=== PATIENT | male | born 2000 | race Caucasian/White ===

== ENCOUNTER 2023-07-23 15:24 | Observation (INO) | payer BC, SELFPAY ==
[2023-07-23] VITALS (12 sets, daily range): BP systolic 119–153; BP diastolic 62–86; PULSE 68–93; RESP 12–20; TEMP 36.5; O2SAT 96–100; BMI 25.2
--- NOTE | ~2023-07-23 | XR_ITS ---
EXAMINATION: XR chest 2V Exam Date/Time: 07/23/2023 16:10 PEDIATRIC ONCOLOGY NURSE HISTORY: chest pain while running Comparison: None. RESULT: Lines, tubes, and devices: None. Lungs and pleura: Clear. Cardiomediastinal silhouette: Normal. Other: No acute osseous or upper abdominal finding. IMPRESSION: No acute cardiopulmonary process. Reviewed, dictated and finalized at location K. ATRIC ONCOLOGY NURSE
--- NOTE | 2023-07-23 15:27 | ECG_ITS ---
Measurements Intervals [place] Rate: 93 P: 80 HI: 185 QRS: 83 QRSD: 89 T: -17 QT: 312 QTc: 390 Interpretive Statements SINUS RHYTHM NONSPECIFIC T-WAVE ABNORMALITY BORDERLINE ECG NO PREVIOUS ECG AVAILABLE FOR COMPARISON Electronically Signed On 07-24-2023 7:03:20 [employer]Y WORKERS SUPERVISOR by Cosme Melton M.D.
[2023-07-23 15:52] LABS: Basophils Percent Auto 0.7 % (0.2-1.2); Eosinophils Percent Auto 0.7 % (0-4.4); Hematocrit 40.9 % (42.0-52.0); Hemoglobin 13.9 g/dL (14.0-18.0); Immature Granulocyte Absolute 0.01 K/mm3 (0.00-0.031); Immature Granulocyte Percent A 0.2 % (0-0.5); Lymphocytes Absolute Auto 1.86 K/mm3 (0.9-3.2); Lymphocytes Percent Auto 32.9 % (18.3-44.2); Mean Corpuscular Hemoglobin 30.2 pg (26-34); Mean Corpuscular Volume 88.9 fl (80-100); Mean Platelet Volume 9.1 fl (7.4-10.4); Monocytes Absolute Auto 0.5 K/mm3 (0.1-0.6); Monocytes Percent Auto 9.2 % (2.6-8.5); Neutrophils Absolute Auto 3.2 K/mm3 (1.3-6.7); Neutrophils Percent Auto 56.3 % (45.5-73.1); Platelet Count Result 292 k/mm3 (150-375); Red Cell Distribution Width 12.3 % (11.5-14.5); White Blood Count 5.7 K/mm3 (4.5-10.0)
[2023-07-23 16:02] LABS: Alanine Aminotransferase 18 U/L (6-50); Albumin Level 4.8 g/dL (3.5-5.1); Alkaline Phosphatase 62 U/L (38-126); Anion Gap 5 mmol/L (8-16); Aspartate Amino Transferase 42 U/L (17-59); Bilirubin,Total 0.8 mg/dL (0.2-1.3); Blood Urea Nitrogen 14 mg/dL (9-20); Calcium 9.7 mg/dL (8.4-10.2); Carbon Dioxide 32 mmol/L (22-30); Chloride 103 mmol/L (98-107); Estimated CRCL calculation 80 ml/min; Estimated Glomerular Filt Rate > 60; Glucose 98 mg/dL (65-110); Lipase 64 U/L (23-300); Potassium 3.9 mmol/L (3.4-5.0); Sodium 140 mmol/L (137-145)
[2023-07-23 16:05] LABS: Prothrombin Time 13.1 Seconds (11.1-14.7)
[2023-07-23 16:13] LABS: Troponin I < 0.012 ng/mL (0.000-0.034)
--- NOTE | 2023-07-23 18:01 | ED.CHESTPAIN ---
HPI - Chest Pain General Chief Complaint: Chest Pain <Ignacio Pastor MD - Last Filed: 07/23/23 19:17> Stated Complaint: Chest pain <Ignacio Pastor MD - Last Filed: 07/23/23 19:17> Time Seen by Provider: 07/23/23 17:28 <Ignacio Pastor MD - Last Filed: 07/23/23 19:17> History of Present Illness HPI narrative: This is a 22-year-old male with a history of hypertension, presents to the emergency department complaining of rapid heart rate and chest pressure. The patient states he was finishing a 4 mi run, when he noted his heart rate increased to the 200s (by his apple smart watch) and developed chest pressure rated 5/10. He states this lasted approximately 10 minutes with improvement of pain and heart rate on sitting, though it is sill present. He has no other complaints at this time. <Ignacio Pastor MD - Last Filed: 07/23/23 19:17> Related Data Allergies/Adverse Reactions: Allergies Allergy/AdvReac Type Severity Reaction Status Date / Time No Known Allergies Allergy Verified 07/23/23 18:04 <Ignacio Pastor MD - Last Filed: 07/23/23 19:17> Review of Systems Review of Systems: CONSTITUTIONAL: Denies fever, chills, or sweats. CARDIOVASCULAR: Palpitations, chest pain-now improved Denies edema. RESPIRATORY: Denies cough or dyspnea. GASTROINTESTINAL: Denies abdominal pain, nausea, vomiting, or diarrhea. GENITOURINARY: Denies dysuria or hematuria. SKIN: Denies rash or itching. MUSCULOSKELETAL: Denies back pain, joint pain, or myalgia. NEUROLOGIC: Denies headache, numbness, dizziness, or weakness. PSYCHIATRIC: Denies anxiety or depression. <Ignacio Pastor MD - Last Filed: 07/23/23 19:17> PMFSH Past Medical History Medical History: Medical History Hypertension <Ignacio Pastor MD - Last Filed: 07/23/23 19:17> Surgical History Surgical History: Surgical History No significant past surgical history <Ignacio Pastor MD - Last Filed: 07/23/23 19:17> Social History Social History: Social History Smoking status: Never smoker Alcohol intake: current Drinks per week: 1 Substance use: never <Ignacio Pastor MD - Last Filed: 07/23/23 19:17> Exam Narrative: GENERAL: Well-developed, well-nourished, and in no acute distress. HEAD: Normocephalic, atraumatic. EYES: PERRLA and EOMI. CHEST: Clear to auscultation. No respiratory distress. No wheezes rales or rhonchi HEART: Regular rate and rhythm. No murmur heard. Normal peripheral pulses. ABDOMEN: Soft, nontender, nondistended, normal active bowel sounds. EXTREMITIES: Normal range of motion. No edema. SKIN: Warm, dry, no rash. NEURO: Alert and oriented x3. No focal deficit. Moving all 4 limbs spontaneously PSYCH: Normal mood and affect. <Ignacio Pastor MD - Last Filed: 07/23/23 19:17> Course Course Emergency Course: 17:55 - Initial troponin negative. Chemistries remarkable for elevated creatinine of 1.4 with an unknown baseline. CBC unremarkable. Chest x-ray unremarkable. Concerning the persistence of the patient's chest pain, though improved will repeat troponin. Will give IV fluids. I anticipate discharge. 19:16 - Repeat troponin elevated to 0.052. Patient to oncoming ED physician, Dr. Mckeon pending admission for observation. <Ignacio Pastor MD - Last Filed: 07/23/23 19:17> 17:55 - Initial troponin negative. Chemistries remarkable for elevated creatinine of 1.4 with an unknown baseline. CBC unremarkable. Chest x-ray unremarkable. Concerning the persistence of the patient's chest pain, though improved will repeat troponin. Will give IV fluids. I anticipate discharge. 19:16 - Repeat troponin elevated to 0.052. Patient to oncoming ED physicianDr. Mckeon pending admission for
[2023-07-23] MEDS: Please add drug allergy info to patient profile. 1 EACH XX (18:05)
[2023-07-23] MEDS: SODIUM CHLORIDE 0.9% IV 1,000 ML 999 ML IV CONT (18:15)
[2023-07-23] MEDS: ASPIRIN 81 MG CHEWABLE TABLET 324 MG PO (18:15)
[2023-07-23 19:02] LABS: Troponin I 0.052 ng/mL (0.000-0.034)
[2023-07-23 19:08] LABS: Thyroid Stimulating Hormone 0.947 uIU/mL (0.465-4.680)
[2023-07-23 19:36] LABS: Creatine Kinase 380 U/L (55-170)
--- NOTE | 2023-07-23 20:18 | PM.IMHP ---
H&P: HPI History of Present Illness Date/Time: 07/23/23 20:18 Chief Complaint: chest pain Narrative: this is a 22-year-old male with no significant past medical history presents today to the emergency room after having episode of palpitations, lightheadedness AND SHORTNESS OF BREATH while out on a run his Apple watch indicated heart rate in the 200s. Patient runs 12-20 miles a week denies use of any energy drinks or the use of recreational drugs or alcohol, has been his usual state of health up until this point. No nausea, no vomiting, no abdominal pain, no fevers, rigors, no chills. Preliminary workup was significant for CPK of 380, troponin x2 0.052/0.057 respectively. In emergency room patient remained in sinus rhythm. Has been placed in observation for further evaluation management and treatment. Rate 93 OR 185 QRSd 89 QT 312 QTc 390 --[place]-- P 80 QRS 83 T -17 SINUS RHYTHM NONSPECIFIC T-WAVE ABNORMALITY NO PREVIOUS ECG AVAILABLE FOR COMPARISON Review of Systems Review of Systems: CHEST PAIN, PALPITATIONS, LIGHTHEADEDNESS, SHORTNESS OF BREATH Constitutional: Constitutional: Denies chills, Denies fever(s), Denies night sweats and Denies weakness Eyes: Eyes: Denies change in vision ENT: Denies dysphagia and Denies odynophagia Cardiovascular: Cardiovascular: Reports chest pain, Denies leg edema, Reports lightheadedness, Reports palpitations and Reports dyspnea Respiratory: Respiratory: Denies chest congestion and Denies cough Gastrointestinal: Gastrointestinal: Denies abdominal pain, Denies nausea and Denies vomiting Genitourinary: Genitourinary: Denies dysuria Musculoskeletal: Musculoskeletal: Denies back pain, Denies myalgias, Denies joint swelling and Denies muscle weakness Integumentary/Breasts: Skin/Breast: Denies rash Neurologic: Denies focal weakness and Denies Sensory deficit (Neuro) Psychiatric: Psychiatric: Reports no additional psychiatric complaints and Reports as per HPI Endocrine: Endocrine: Denies cold intolerance, Denies flushing, Denies heat intolerance, Denies polyphagia, Denies polydipsia and Denies palpitations Hematologic/Lymphatic: Hematologic/Lymphatic: Reports no additional hematologic/lymphatic complaints and Reports as per HPI Allergic/Immunologic: Allergic/Immunologic: Reports no additional allergic/immunologic complaints and Reports as per HPI PMFSH Past Medical History Medical History Hypertension Surgical History Surgical History No significant past surgical history Family History Family History (Updated 07/23/23 @ 23:21 by Alex Lawson RN) Mother Hypertension Social History Social History Smoking status: Never smoker Alcohol intake: current Drinks per week: 1 Substance use: never Substance use type: does not use Do You Feel Safe in your Home?: Yes Lack of Transportation: No Lack of Food: Never True Current Housing: I Have Housing Concerned About Future Housing: No Difficulty Paying Gas/Electric Bills: No Difficulty Paying for Meds: No Currently Unemployed: No Education: High School Diploma/GED Difficulty w/ Childcare or Family Care: No Spiritual care concerns: No Meds Home Medications and Allergies Home Medications Medication Instructions Recorded Confirmed Type No Home Medications 07/24/23 07/24/23 History Allergies Allergy/AdvReac Type Severity Reaction Status Date / Time No Known Allergies Allergy Verified 07/23/23 18:04 Vital Signs Vital Signs - 24 hr 07/23/23 15:31 07/23/23 17:46 07/23/23 17:46 Pulse Rate 93 80 Respiratory Rate 14 Blood Pressure 146/72 H Pulse Oximetry 100 100 Oxygen Delivery Room Air Room Air H&P: Results Labs Labs: Short CBC 07/23/23 Range/Units 15:41 WBC 5.7 (4.5-
--- NOTE | 2023-07-23 21:45 | ECG_ITS ---
Measurements Intervals [place] Rate: 61 P: [place]: 0 QRS: 71 QRSD: 98 T: -17 QT: 360 QTc: 364 Interpretive Statements SINUS RHYTHM BASELINE ARTIFACT NONSPECIFIC ST & T-WAVE ABNORMALITY WITH DIFFUSE J-POINT ELEVATION BORDERLINE ECG COMPARED TO ECG 07/23/2023 15:37:15 NO SIGNIFICANT CHANGES Electronically Signed On 07-24-2023 18:21:45 SCHOOL EXAMINER by Shawn Zambrano M.D.
[2023-07-23 22:33] LABS: Troponin I 0.057 ng/mL (0.000-0.034)
--- NOTE | 2023-07-23 23:38 | ECG_ITS ---
Measurements Intervals [place] Rate: 65 P: 3 TX: 161 QRS: 71 QRSD: 102 T: -7 QT: 409 QTc: 427 Interpretive Statements SINUS RHYTHM ST ELEVATION CONSISTENT WITH PERICARDITIS, OR EARLY REPOLARIZATION [ST ELEVATION W/O NORMALLY INFLECTED T WAVE] ST DEVIATION AND MODERATE T-WAVE ABNORMALITY, NONSPECIFIC BORDERLINE ECG COMPARED TO ECG 07/23/2023 21:52:32 NO SIGNIFICANT CHANGE Electronically Signed On 07-24-2023 18:22:44 [employer] by Shawn Zambrano M.D.
--- NOTE | 2023-07-23 23:56 | ADMGEN ---
This patient, Sai Meza, was admitted to IMU Room 201-01. Patient/family oriented to hospital policies and general routines including ID bracelet, bed and alarms, visiting hours, pain management, procedures, bathroom and other care routines, personal items, smoking policy, room service/diet, and visiting hours. Information on how to activate the Rapid Response Team has been discussed. Patient/Family are encouraged to report perceived risks to care and to ask questions if they do not understand what they are told or what they should do.
[2023-07-24] VITALS (17 sets, daily range): BP systolic 123–143; BP diastolic 51–66; PULSE 47–74; RESP 16–20; TEMP 36.1–36.8; O2SAT 98–100
--- NOTE | 2023-07-24 | ECHO_ITS ---
Patient Info Name: Sai Meza Age: 22 years : 2000 Gender: Male Ht: 75 in Wt: 202 lbs BSA: 2.21 m2 HR: 47 bpm BP: 124 / 53 mmHg Heart Rhythm: Bradycardia, Sinus Rhythm Technical Quality: Good Exam Date: 07/24/2023 7:28 AM Exam Location: Echo Lab Patient Status: Outpatient Admit Date: 07/23/2023 Staff Ordering Physician: Steph Simpson MD Gristmiller: Irina Ascencio RDCS Attending Provider: Steph Simpson MD Referring Physician: Calvin BRICENO; Exam Type: CA echo doppler w bubble study Study Info Indications - SVT Complete two-dimensional, color flow and Doppler transthoracic echocardiogram is performed. Contrast/Agitated Saline Contrast/Ag. Saline: Agitated Saline Amount: 20.00 ml Administered By: Jennifer Alonso RDCS Existing IV Access: Yes IV Access Condition: patent with no signs of infiltration Summary 1. Complete two-dimensional, color flow and Doppler transthoracic echocardiogram is performed. 2. Dilated inferior vena cava with <50% collapse upon inspiration consistent with elevated right atrial pressure, 10 mmHg. 3. The pericardium appears slightly increased echogenicity of the pericardium. 4. Left ventricular chamber dimension is normal. 5. Left ventricular systolic function is normal, estimated at 65-70%. 6. There is no increased left ventricular wall thickness. 7. The left ventricular diastolic function is normal. 8. Right ventricular chamber dimension is normal. 9. Right ventricular systolic function is normal. 10. Right atrial chamber dimension is moderate to severely enlarged. 11. There is trace mitral valve regurgitation. 12. There is trace tricuspid valve regurgitation. 13. No pulmonary hypertension, estimated pulmonary arterial systolic pressure is 29 mmHg. 14. No evidence for [id number] shunt with injection of agitated saline with or without Valsalva. Left Ventricle Left ventricular chamber dimension is normal. Left ventricular systolic function is normal, estimated at 65-70%. There is no increased left ventricular wall thickness. The left ventricular diastolic function is normal. Right Ventricle Right ventricular chamber dimension is normal. Right ventricular systolic function is normal. Left Atria Left atrial chamber dimension is normal. Right Atria Right atrial chamber dimension is moderate to severely enlarged. Atrial Septum No evidence for [id number] shunt with injection of agitated saline with or without Valsalva. Aortic Valve The aortic valve is trileaflet. There is no aortic valve stenosis. There is no aortic valve regurgitation. Pulmonic Valve The pulmonic valve is not well visualized. There is trace pulmonic regurgitation. Mitral Valve The mitral valve has normal leaflets. There is trace mitral valve regurgitation. Tricuspid Valve The tricuspid valve leaflets are normal. There is trace tricuspid valve regurgitation. No pulmonary hypertension, estimated pulmonary arterial systolic pressure is 29 mmHg. Pericardium/Pleural The pericardium appears slightly increased echogenicity of the pericardium. There is no pericardial effusion. Inferior Vena Cava Dilated inferior vena cava with <50% collapse upon inspiration consistent with elevated right atrial pressure, 10 mmHg. Aorta The aortic root size at the sinus of Valsalva is normal. Left Ventricular Outflow Tract Name Value Normal
[2023-07-24] MEDS: SODIUM CHLORIDE 0.9% IV 1,000 ML 100 ML IV CONT (00:50)
[2023-07-24 05:11] LABS: Anion Gap 6 mmol/L (8-16); Blood Urea Nitrogen 14 mg/dL (9-20); Calcium 8.8 mg/dL (8.4-10.2); Carbon Dioxide 28 mmol/L (22-30); Chloride 107 mmol/L (98-107); Cholesterol 87 mg/dL (0-200); Creatine Kinase 288 U/L (55-170); Estimated CRCL calculation 94 ml/min; Estimated Glomerular Filt Rate > 60; Glucose 87 mg/dL (65-110); HDL Direct 28 mg/dL; Potassium 3.8 mmol/L (3.4-5.0); Sodium 141 mmol/L (137-145); Triglycerides 74 mg/dL (<150)
[2023-07-24 05:21] LABS: LDL Cholesterol Direct 52 mg/dL
[2023-07-24 09:40] LABS: Troponin I < 0.012 ng/mL (0.000-0.034)
--- NOTE | 2023-07-24 10:39 | ECG_ITS ---
Measurements Intervals [place] Rate: 58 P: 0 FL: 167 QRS: 49 QRSD: 97 T: -15 QT: 384 QTc: 380 Interpretive Statements SINUS BRADYCARDIA DIFFUSE J-POINT ELEVATION CONSIDER EARLY REPOLARIZATION, PERICARDITIS BORDERLINE ECG COMPARED TO ECG 07/23/2023 23:46:23 SINUS BRADYCARDIA NOW PRESENT Electronically Signed On 07-24-2023 18:29:11 [employer]PERINTENDENT [employer]OB by Shawn Zambrano M.D.
--- NOTE | 2023-07-24 11:11 | PM.CNCAR ---
Assessment and Plan Assessment and plan (1) Chest pain: Qualifiers: Chest pain type: unspecified Qualified Code(s): R07.9 - Chest pain, unspecified Code(s): R07.9 - Chest pain, unspecified Status: Acute Assessment and Plan: Chest pain occurred while running in conjunction with rapid elevation heart rate suddenly up to 210 beats per minute sustained without change for least 15-20 minutes subsequently reduction in heart rate and resolution of the symptoms over the next 1-2 hours. Initial troponin negative subsequently elevated 0.052, 0.057 and following evaluation less than 0.012. He has not had recurrent SVT or tachyarrhythmia on telemetry thus far. Most likely explanation for symptoms related to demand ischemia in setting of SVT which occurred during exercise although cannot entirely exclude myopericarditis. However, exam is not suggestive of pericarditis given the absence fraction rub although ECG possibly supportive. He does not report any preceding contributing viral illness or illicit substance abuse and given the fact he is completely asymptomatic at this time would argue against active acute severe pericarditis that resolved without direct treatment. As such, symptoms pretty most likely consistent with demand ischemia related to SVT particular given history of intermittent fluttering and palpitations with similar but no where near severe symptoms given the brief nature in the past. As such, we discussed at great length diagnostic workup in this regard. We discussed outpatient 30 day hospital monitor further documentation evaluation. I do not feel a stress test will significantly alter our management particular given patient's high level of activity tolerance without any anginal symptoms proceeding. Furthermore, if he does have pericarditis breathing through a stress test would be ill-advised. Will reviewed 2D echocardiogram to assess LV wall motion, LV function, valve pathology pulmonary pressures as well as pericardium with further recommendation to follow. If there is additional concern in this regard or cannot entirely exclude pericarditis have been favor treating him with NSAID therapy with tapering doses of ibuprofen as well as possibly some colchicine for least 2 weeks. I will check an ESR and CRP for further evaluation. I spent 84 minutes in the care of this patient at bedside including discussions, examination, chart review, medical decision-making, and documentation. (2) Elevated troponin: Code(s): R79.89 - Other specified abnormal findings of blood chemistry Status: Acute Assessment and Plan: Mild troponin elevation currently resolved most likely demand ischemia not secondary to acute coronary syndrome and/or plaque rupture. ECG while abnormal with diffuse J-point elevation not consistent with a clear acute pattern of injury particularly given this young otherwise very healthy gentleman without risk factors for CAD. Patient is asymptomatic at this time. (3) SVT (supraventricular tachycardia): Code(s): I47.10 - Supraventricular tachycardia, unspecified Status: Acute Assessment and Plan: By history patient describes sustained rapid tachyarrhythmia heart rate greater than 200 beats per minute without fluctuation arguing against a physiologic response given his present level of activity at time of onset and history of intermittent similar but fleeting rapid fluttering/palpitations he has experienced over many years without prior diagnosis. We discussed observation, medical management with AV lara blocking agents and if diagnosed referral to electrophysiology for ablation procedure for potential cure. Given the lack of specific diagnosis at this time. We will continue to monitor on telemetry for now hold off on medical therapy continue to observe. If SVT is not identified this hospitalization outpatient 30 day hospital monitor will be recommended for further evaluation. (
[2023-07-24 11:29] LABS: CRP < 0.5 mg/dL (<1.0)
[2023-07-24 12:08] LABS: Erythrocyte Sedimentation Rate 11 mm/hr (0-20)
--- NOTE | 2023-07-24 14:38 | PM.IMPN ---
Progress Note: A&P Assessment and Plan (1) Chest pain: Qualifiers: Chest pain type: unspecified Qualified Code(s): R07.9 - Chest pain, unspecified Code(s): R07.9 - Chest pain, unspecified Status: Acute Assessment and Plan: Patient with CP while running associated with severe tachycardia. EKG showing NSR with nonspecific T-wave changes. A third EKG showing ST elevation consider lateral ischemia vs pericarditis. Troponin elevated to 0.057 probably related to SVT Cardiology consulted. Echo ordered Suspect CP related to abnormal heart rhythm (such as SVT). Monitor on tele. Stop IV fluids (2) Abnormal heart rate: Code(s): R00.9 - Unspecified abnormalities of heart beat Status: Acute Assessment and Plan: Not captured to review but suspect SVT. He has been having episodes of brief, rapid heart rate in the past with exertion. Monitor on tele He may need outpatient monitoring (3) Abnormal ECG: Code(s): R94.31 - Abnormal electrocardiogram [ECG] [EKG] Status: Acute Assessment and Plan: As above (4) Elevated troponin: Code(s): R79.89 - Other specified abnormal findings of blood chemistry Status: Acute Assessment and Plan: As above (5) Hypertension: Code(s): I10 - Essential (primary) hypertension Status: Acute Assessment and Plan: Patient found to have borderline elevated BP. Mom with HTN at an early age so probably essential. TSH, lipid panel, CBC, electrolytes normal. Cr 1.4 on admisison but he has been taking creatine supplements. Check UA. Consider renal artery doppler. Plan DVT prophylaxis - out of bed, walk in halls Code status - full Subjective Date/time seen: 07/24/23 14:38 Interval history: 22yo healthy male with HTN on no medications here for chest pain and rapid heart rate. Patient feels well. No recurrence of symptoms. Described it as a band like pain arund his chest. not pleuritic. Heart rate up to 200 per his [employer] smart watch. Exam Narrative: AF 98.2 123/57 53 16 98% ra Gen - NARD Chest - CTA bilaterally, nml RR CV - RRR S1/S2. Tele showing mild bradycardia Abd - Soft, NT/ND, Positive BS Ext - No pedal edema Neuro - Alert and oriented. Nonfocal exam. Psych - Nml mood and affect Skin - Warm and dry Objective Data Vital Signs Vital Signs: Vital Signs - 24 hr 07/23/23 15:31 07/23/23 17:46 07/23/23 17:46 Temperature Pulse Rate 93 80 Respiratory Rate 14 Blood Pressure 146/72 H Pulse Oximetry 100 100 Oxygen Delivery Room Air Room Air 07/23/23 17:46 07/23/23 18:01 07/23/23 18:32 Temperature Pulse Rate 80 70 83 Respiratory Rate 19 16 18 Blood Pressure 149/73 H 131/72 130/64 Pulse Oximetry 100 100 100 Oxygen Delivery 07/23/23 19:01 07/23/23 19:31 07/23/23 20:01 Temperature Pulse Rate 71 70 69 Respiratory Rate 14 16 16 Blood Pressure 130/70 127/79 134/62 Pulse Oximetry 100 100 96 Oxygen Delivery 07/23/23 21:55 07/23/23 22:15 07/23/23 22:30 Temperature Pulse Rate 68 69 85 Respiratory Rate 17 16 12 Blood Pressure 128/73 119/76 Pulse Oximetry 100 100 Oxygen Delivery 07/23/23 22:45 07/23/23 23:50 07/24/23 00:00 Temperature 97.7 F Pulse Rate 89 72 73 Respiratory Rate 20 20 Blood Pressure 121/72 153/86 H Pulse Oximetry 100 100 Oxygen Delivery 07/24/23 02:00 07/24/23 04:00 07/24/23 05:01 Temperature 97.0 F L Pulse Rate 64 59 L 47 L Respiratory Rate 20 Blood Pressure 124/53 L Pulse Oximetry 98 Oxygen Delivery 07/24/23 06:00 07/24/23 08:00 07/24/23 11:53 Temperature 97.6 F 98.3 F Pulse Rate 52 L 48 L 57 L Respiratory Rate 16 20 Blood Pressure 136/66 143/64 H Pulse Oximetry 98 98 Oxygen Delivery 07/24/23 08:00 07/24/23 12:00 07/24/23 10:00 Temperature Pulse Rate 69 58 L 64 Respiratory Rate Blood Pressure Pulse Oximetry Oxygen Delivery
--- NOTE | 2023-07-24 20:13 | PC.NURSE ---
Given container for Urine Specimen
[2023-07-24 20:50] LABS: Appearance Urine Clear (Clear); Bilirubin Urine Negative (Negative); Blood Urine Negative (Negative); Color Urine Yellow (Yellow); Glucose Urine UA Negative (Negative); Ketones Urine Negative (Negative); Leukocyte Esterase Ur Negative LEU/UL (Negative); Nitrate Urine Negative (Negative); Protein Urine Negative (Negative); Specific Grav Ur 1.016 (1.001-1.035); Urobilinogen Urine 0.2 mg/dL (<2.0)
[2023-07-24 21:17] LABS: Add Urine Microscopic? NO
[2023-07-25] VITALS (11 sets, daily range): BP systolic 113–145; BP diastolic 57–77; PULSE 43–69; RESP 12–16; TEMP 36.1–36.4; O2SAT 99–100
--- NOTE | 2023-07-25 07:00 | ECG_ITS ---
Measurements Intervals [place] Rate: 42 P: 0 [place]: 179 QRS: 70 QRSD: 106 T: -1 QT: 432 QTc: 363 Interpretive Statements SINUS BRADYCARDIA WITH SINUS ARRHYTHMIA COMPARED TO ECG 07/24/2023 11:05:33 SINUS ARRHYTHMIA NOW PRESENT Electronically Signed On 07-25-2023 15:34:40 DOWEL MAKER by Sachin Evangelista M.D.
--- NOTE | 2023-07-25 08:10 | PC.NURSE ---
Report given to Dr. Santoro that the pt HR trend has been down in the 40s et the pt is alert et awake et sitting up in the bed. Reviewed the ECG with no new interventions at this time from this AM 0747. Questioned if the pt is able to eat or should we change the pt to NPO? Per Dr. Santoro no changes needed at this time to the current POC.
--- NOTE | 2023-07-25 10:13 | PM.PNCARD ---
Progress Note: A&P Assessment and Plan (1) Chest pain: Qualifiers: Chest pain type: unspecified Qualified Code(s): R07.9 - Chest pain, unspecified Code(s): R07.9 - Chest pain, unspecified Status: Acute Assessment and Plan: Chest pain occurred while running in conjunction with rapid elevation heart rate suddenly up to 210 beats per minute sustained without change for least 15-20 minutes with subsequent reduction in heart rate and resolution of the symptoms over the next 1-2 hours. He has not had recurrent SVT or tachyarrhythmia on telemetry thus far. Most likely explanation for symptoms related to demand ischemia in setting of SVT which occurred during exercise. Echo showed normal LV systilic function, mod-severe RA chamber enlargement, trace MR, trace TR, thickened pericardium with no pericardial effusion ESR, CRP negative Will order outpatient cardiac MRI to further evaluate the pericardium - thus far no definitive support for treating pericarditis/myopericarditis 30 day rib chopper has been ordered. OK for discharge today from a cardiac standpoint (2) Elevated troponin: Code(s): R79.89 - Other specified abnormal findings of blood chemistry Status: Acute Assessment and Plan: Mild troponin elevation currently resolved most likely demand ischemia. No risk factors for CAD. No plans for cardiac stress testing at this time. (3) SVT (supraventricular tachycardia): Code(s): I47.10 - Supraventricular tachycardia, unspecified Status: Acute Assessment and Plan: By history patient describes sustained rapid tachyarrhythmia heart rate greater than 200 beats per minute lasting 15-20 minutes with gradual reduction in HR down to normal after 1-2 hours. Given the lack of specific diagnosis at this time with no reucrrence on telemetry, will proceed with plan for 30 day outpatient monitor and will hold off on medical therapy while we observe. Possible referral to EP depending on findings of outpatient monitor (4) Abnormal ECG: Code(s): R94.31 - Abnormal electrocardiogram [ECG] [EKG] Status: Acute Assessment and Plan: ECG with diffuse J-point elevation and abnormal T-wave inversions in the inferior leads. His presentation and pattern not consistent with acute coronary syndrome and/or plaque rupture. Is highly unlikely his significant obstructive CAD as he is young and healthy with no risk factors. Subjective Date/time seen: 07/25/23 10:13 Interval history: Cardiology follow up for palpitations, chest pain Sai is feeling well today. He has not had any recurrence of chest pain or palpitations. His telemetry demonstrates sinus rhythm and sinus bradycardia lowest HR seen 40bpm. Discussed results of echo with patient and family members at bedside as well as the plan of care. Patient is eager to go home today. Review of Systems Review of Systems: Remainder of the review of systems is otherwise negative aside from that noted in the HPI. All systems reviewed & are unremarkable except as noted in HPI and below Constitutional: Constitutional: Reports as per HPI and Reports no additional constitutional complaints Eyes: Eyes: Reports as per HPI and Reports no additional eye complaints ENT: Reports system reviewed and no additional complaints, except as documented and Reports as per HPI Cardiovascular: Cardiovascular: Reports as per HPI and Reports no additional cardiovascular complaints Respiratory: Respiratory: Reports as per HPI and Reports no additional respiratory complaints Gastrointestinal: Gastrointestinal: Reports as per HPI and Reports no additional gastrointestinal complaints Genitourinary: Genitourinary: Reports no additional male genitourinary complaints and Reports as per HPI Musculoskeletal: Musculoskeletal: Reports no additional musculoskeletal complaints and Reports as per HPI Integumentary/Breasts: Skin/Breast: Reports syste
--- NOTE | 2023-07-25 14:13 | PM.DS ---
DS: Admitting Diagnosis Discharge Date 07/25/23 Admitting Diagnosis Chest pain and rapid heart rate DS: Discharge Diagnosis Discharge Diagnosis (1) Chest pain: Qualifiers: Chest pain type: unspecified Qualified Code(s): R07.9 - Chest pain, unspecified Code(s): R07.9 - Chest pain, unspecified Status: Acute (2) Abnormal heart rate: Code(s): R00.9 - Unspecified abnormalities of heart beat Status: Acute (3) Abnormal ECG: Code(s): R94.31 - Abnormal electrocardiogram [ECG] [EKG] Status: Acute (4) Elevated troponin: Code(s): R79.89 - Other specified abnormal findings of blood chemistry Status: Acute (5) Hypertension: Code(s): I10 - Essential (primary) hypertension Status: Acute DS: Summary Hospital Course Reason for hospitalization: 22yo healthy male with HTN on no medications here for chest pain and rapid heart rate. Please see H&p for details. Hospital Course: Patient with CP while running associated with severe tachycardia. On presentation, EKG showing NSR with nonspecific T-wave changes. A third EKG showing ST elevation consider lateral ischemia vs pericarditis. Troponin elevated to 0.057 probably related to SVT. Cardiology consulted. Echo showing EF 65-70%, AREYL, trace valvular disease and no evidence of shunt. Isolated ARELY can be seen in atheletes. Suspect CP related to abnormal heart rhythm. He was admitted to IMU on tele. The abnormal heart rate not captured to review. Patient found to have borderline elevated BP. Mom with HTN at an early age so probably essential. TSH, lipid panel, UA, CBC, electrolytes normal. Cr 1.4 on admission but he has been taking creatine supplements. Repeat Cr better. Patient had no recurrence. Plan for further workup as outpatient. He overall did well and was able to be discharged home on 07/25/23. Status at Discharge Cognitive/behavioral status at discharge: stable Time Spent with Patient Time attestation: Total time spent providing and/or coordinating discharge services: 37 minutes Time spent: Greater than 30 minutes Exam Narrative: AF 97.5 145/77 60 12 99% ra Gen - NARD Chest - CTA bilaterally, nml RR CV - RRR S1/S2. Tele showing mild bradycardia Abd - Soft, NT/ND, Positive BS. no abdominal bruit Ext - No pedal edema. no radial-femoral discrepency. Neuro - Alert and oriented. Nonfocal exam. Psych - Nml mood and affect Skin - Warm and dry DS: Data Data Completed and Pending Labs on day of discharge: Labs from last 24 hours 07/24/23 20:39 Urine Color Yellow Urine Appearance Clear Urine pH 8.0 Ur Specific [place] 1.016 Urine Protein Negative Urine Glucose (UA) Negative Urine Ketones Negative Ur Blood (Man) Negative Urine Nitrate Negative Urine Bilirubin Negative Urine Urobilinogen 0.2 Leukocyte Esterase Rfl Negative Discharge Plan Discharge Attending physician on discharge: Yohanens Lagunas Consulting providers: Janelle Gould Discharging Clinician: Yohannes Lagunas Anticipated Discharge Date/Time: 07/25/23 14:21 Patient Disposition: Home, Self-Care Activity: no straining Diet: heart healthy Discharge Instructions: Avoid strenuous physical activity/exercise for the time being. You may participate in light-moderate intensity exercise but avoid exerting maximum effort (aim for less than 70% of your heart rate max which can be calculated by subtracting your age from 220) Contact your doctor or call 911 and come to the Emergency Room if you have chest pain, palpitations or other worrisome symptoms. Avoid NSAIDs (ibuprofen, naproxen, Aleve). Tylenol is safe to take. Follow-up with your primary care provider in 1-2 weeks. Please call for appointment. Follow-up with Cardiology in 3-4 weeks. Please call for an appointment. Thank you for using [facility] for your health care needs. Patient Instructions: Antibiotic Form
--- NOTE | 2023-07-25 15:05 | PC.NURSE ---
The pt was escorted to [facility] cardiology at discharge. The pt ambulated without distress. Family with the pt. Report given to [facility] cardiology that pt was Enroute per order discharge order to initiate outpt plan of care. Outpt cardiology closes at 1500. Denies pain et none noted at the time of discharge from IMU unit. No distress noted during ambulation, denies pain. Significant other et family in waiting room with the pt. All belongings removed per family.
== END 2023-07-25 14:59 | disposition home or self-care (01) ==
LOC: ANHED 19:17 → ANHIMU 23:34
PROVIDERS: Emergency Medicine; Internal Medicine Cardiovascular Disease; Physician Assistant; Admitting Provider Internal Medicine; Emergency Provider Preventive Medicine Aerospace Medicine; Visit Provider Internal Medicine
DX: R07.9 Chest pain, unspecified (principal); I47.10 Supraventricular tachycardia, unspecified; R94.31 Abnormal electrocardiogram [ECG] [EKG]; R06.02 Shortness of breath; I10 Essential (primary) hypertension; R79.89 Other specified abnormal findings of blood chemistry
CPT/HCPCS: 36415; 71046; 80048; 80053; 80061; 81003; 82550; 83690; 83735; 84443; 84484; 85025; 85610; 85652; 85730; 86140; 93005; 93306; 96360; 96361; 96375; 99285; A9270; G0378; J7030